=== PATIENT | female | born 2000 | race Asian ===

== ENCOUNTER → 2022-05-14 11:37 | Outpatient (BNVA) | payer OTHER, SELFPAY | PROVIDERS: PCP Internal Medicine; Visit Provider Student in an Organized Health Care Education/Training Program | DX: Z13.89 Encounter for screening for other disorder (principal) ==

== ENCOUNTER 2023-01-16 10:01 | Outpatient (REF) | payer OTHER, SELFPAY | END 2023-01-16 10:02 | disposition home or self-care (01) | LOC: HO.LAB 10:01 | PROVIDERS: PCP Internal Medicine; Visit Provider Student in an Organized Health Care Education/Training Program | DX: Z13.89 Encounter for screening for other disorder (principal) ==

== ENCOUNTER 2023-01-22 14:06 | Outpatient (AMB) | payer OTHER, SELFPAY ==
--- NOTE | 2023-01-22 14:09 | MHC.OFFVIS ---
Intake Vital Signs 01/22/23 14:14 Height 5 ft 2 in Weight 116 lb 13.52 oz BMI 21.4 BP 102/70 Blood Pressure Location Rt brachial Position Sitting Pulse 87 Pulse Source Pulse Oximeter Temp 98.7 F Temp Source Skin Pulse Oximetry (%) 97 Oxygen Delivery Method Room Air Intake Visit Reasons: SLE Intake Note: Patient presents here today for SLE follow up. Waitress Required: No Allergies desogestrel [From Apri] Allergy (Severe, Verified 01/22/23 14:15) Hives ethinyl estradiol [From Apri] Allergy (Severe, Verified 01/22/23 14:15) Hives propylene glycol Allergy (Severe, Verified 01/22/23 14:15) Hives sertraline Allergy (Severe, Verified 01/22/23 14:15) Hallucinations Medication List - Last Reconciled 01/22/23 by Leona Sierra MD amitriptyline 10 mg PO BEDTIME 30 days atovaquone-proguanil 250-100 mg 1 tab PO DAILY azelastine intranasal betamethasone dipropionate 0.05% topical BID PRN clindamycin phosphate 1% topical fexofenadine 180 mg PO DAILY fluticasone propionate 50 mcg/actuation sprays intranasal hydroxychloroquine 200 mg PO DAILY lamotrigine 50 mg PO DAILY levonorgestrel-ethinyl estrad 0.15 mg-30 mcg (91) 1 tab PO DAILY PRN magnesium oxide 400 mg PO BEDTIME 30 days trazodone 100 mg PO DAILY triamcinolone acetonide intranasal HPI HPI Comments History of Present Illness Details 22-year-old female with UCTD returns for follow-up. Patient is on hydroxychloroquine 200 mg daily regularly. She states that she feels at least 30% improvement in the stiffness of her hands and feet. She denies any other symptoms such as hair loss, mouth ulcers, blood in the urine. Initial history: This is a 21-year-old female with a past medical history of anxiety, depression, ADHD, headaches presents for evaluation of inflammatory arthritis. Patient was previously evaluated by Dr. Tran she was found to have a positive LORI, positive dsDNA and positive rheumatoid factor. She has a positive family history of rheumatoid arthritis in her mother and maternal grandmother. Patient stated she was on hydroxychloroquine for about 1 year which did help her overall joint pain symptoms. She also stated that physical therapy prescribed for her back also of her symptoms. She continues to have stiffness of her hands in the morning lasting from 30 minutes to 1 hour. Improved with exercising. Continues to have back pain. She denies any history of Raynaud's, DVT/PE, never attempted . No sicca symptoms. No rashes PFSH Medical History ADHD (attention deficit hyperactivity disorder) Anxiety and depression LORI positive Rheumatoid factor positive Surgical History Hx of wisdom tooth extraction Family History Mother Rheumatoid arthritis Maternal Grandmother HTN (hypertension) Rheumatoid arthritis Social History Household Members: Family Alcohol intake: never Patient Tobacco Use Status: Never used Tobacco Review of Systems Musc Reports back pain, Reports myalgias, Reports arthralgias and Reports stiffness Physical Exam Vital Signs: Last Vital Signs Temp 98.7 F 01/22/23 14:14 Pulse 87 01/22/23 14:14 BP 102/70 01/22/23 14:14 Pulse Ox 97 01/22/23 14:14 Oxygen Delivery Method Room Air 01/22/23 14:14 BMI result Body Mass Index 21.4 Const General: cooperative, healthy appearing, comfortable and no acute distress Nutritional Appearance: thin Orientation/consciousness: patient oriented x3 Limitations: no limitations HEENT Head: Yes normocephalic and Yes atraumatic Mouth: moist mucous membranes Resp Effort & Inspection: normal respiratory effort and able to speak in complete sentences Auscultation: clear to auscultation bilaterally Cardio Other: Little tachycardic likely due to anxiety Rhythm: regular rhythm Heart sounds: S1 normal heart sound present and S2 normal heart sound present GI Inspection: No distended Palpation (GI): Soft to palpation and nontender Skin General skin exam: no rashes or lesions noted Neuro General: patient oriented x3 Extrem Other: He has tender MCPs PIP is and DIPs without any swelling Normal nailfold capillaroscopy Few tender MTPs without any swelling. Diffuse fibromyalgia tender points in her back, chest and thighs Results Reviewed Results Reviewed: Labs in 2020? LORI 1-1280 homogeneous DsDNA positive? RF positive Lieberman/MACHINE MAINTENANCE TECHNICIAN negative? Ant-Ro/Anti-la not done Assessment & Plan Assessment & Plan (1) Undifferentiated connective tissue disease: Comment: dx 2020 (arthralgias, +++ LORI, ++ dsDNA, ++RF) HCQ started 2020 then lost to f/u restarted 04/2022 effective Code(s): M35.9 - Systemic involvement of connective tissue, unspecified Plan: This is a 22-year-old female with UCTD who presents for follow-up.? Patient mentions at least 30% improvement in the stiffness of her hands and feet on hydroxychloroquine 200 mg daily. Continue hydroxychloroquine 200 mg daily. Patient stated that she will do the requested blood work, but she will have to do it in multiple blood draws as she feels she will faint Follow-up in 4 months (2) Fibromyalgia, primary: Code(s): M79.7 - Fibromyalgia Plan: Continue to do light activities. (3) Long-term use of hydroxychloroquine: Code(s): Z79.899 - Other terminal system operator (current) drug therapy Plan: Discussed risk of retinopathy while on hydroxychloroquine. Patient was evaluated by an magician/illusionist this year for hydroxychloroquine screening. Referred patient to Client Account Manager Plan I spent 26 minutes reviewing patient's chart, evaluating patient, placing orders, counseling patient and documenting in the chart Orders: Referrals Ophthalmology Referral Z79.899 - Other terminal system operator (current) drug therapy Coding Level of Care Code Est Pt Level 4 (78395) Diagnoses Undifferentiated connective tissue disease M35.9 Fibromyalgia, primary M79.7 Long-term use of hydroxychloroquine Z79.899
[2023-01-22 14:14] VITALS: BP 102/70; PULSE 87; TEMP 37.1; O2SAT 97; BMI 21.4
== END 2023-01-22 14:29 | disposition home or self-care (01) ==
PROVIDERS: PCP Internal Medicine; Visit Provider Student in an Organized Health Care Education/Training Program
DX: M35.89 Other specified systemic involvement of connective tissue (principal); M79.7 Fibromyalgia; Z79.899 Other long term (current) drug therapy
CPT/HCPCS: 99213

== ENCOUNTER → 2023-01-22 14:06 | Outpatient (BNVA) | payer OTHER, SELFPAY | PROVIDERS: PCP Internal Medicine; Visit Provider Student in an Organized Health Care Education/Training Program ==

== ENCOUNTER 2023-03-02 16:04 | Outpatient (REF) | payer OTHER, SELFPAY ==
[2023-03-02 16:29] LABS: MANUAL DIFF FLAG NO
[2023-03-02 16:54] LABS: Basophils Absolute Auto 0.1 X10*3/uL (0.0-0.2); Basophils Percent Auto 1.1 % (0-2); Eosinophils Absolute Auto 0.3 X10*3/uL (0.0-0.4); Eosinophils Percent Auto 3.4 % (0-4); Hematocrit 42.6 % (37.0-47.0); Hemoglobin 14.3 g/dl (12.0-16.0); Imm Gran Abs Auto 0.02 X10*3/uL (0.00-0.03); Imm Gran Pct Auto 0.3 % (0.0-0.4); Lymphocytes Absolute Auto 2.7 X10*3/uL (1.2-4.9); Lymphocytes Percent Auto 35.7 % (20-40); Mean Corpuscular HGB Conc 33.6 g/dl (31.0-35.0); Mean Corpuscular Hemoglobin 30.4 pg (27.0-33.0); Mean Corpuscular Volume 90.6 fL (80.0-98.0); Mean Platelet Volume 9.2 fL (9.4-12.3); Monocytes Absolute Auto 0.7 X10*3/uL (0.1-1.2); Monocytes Percent Auto 9.5 % (2-11); Neutrophils Absolute Auto 3.8 x10*3/uL (2.0-8.3); Platelet Count 335 X10*3/uL (160-400); Red Cell Distribution Width 11.5 % (11.0-16.0); White Blood Count 7.6 X10*3/uL (4.8-10.8)
[2023-03-03 04:36] LABS: HBS Num1 > 1000.00 mIU/mL (0-7.99); HBc Num1 0.13 S/CO (0.00-0.79); HBsAGNum1 0.37 S/CO (0.00-0.99); Hepatitis A Antibody IgM 0.38 Index (0-0.79); Hepatitis B Core Antibody Nonreactive (Nonreactive); Hepatitis B Surface Antigen Negative (Negative); ~Hepatitis A Antibody IgM Nonreactive (Nonreactive); ~Hepatitis B Surface Antibody REACTIVE (Nonreactive); ~Hepatitis C Antibody Nonreactive (Nonreactive)
[2023-03-04 18:34] LABS: SM/Ribonucleoprotein Ab <1.0 NEG AI (<1.0 NEG); Smith Protein <1.0 NEG AI (<1.0 NEG)
[2023-03-04 18:44] LABS: Antibody to SS-A Antigen <1.0 NEG AI (<1.0 NEG); Antibody to SS-B Antigen <1.0 NEG AI (<1.0 NEG)
== END 2023-03-02 16:05 | disposition home or self-care (01) ==
LOC: HO.LAB 16:04
PROVIDERS: Visit Provider Student in an Organized Health Care Education/Training Program
DX: Z11.59 Encounter for screening for other viral diseases (principal); M32.9 Systemic lupus erythematosus, unspecified; Z72.89 Other problems related to lifestyle
CPT/HCPCS: 36415; 85025; 86235; 86704; 86706; 86709; 86803; 87340

== ENCOUNTER 2024-04-03 15:28 | Outpatient (AMB) | payer OTHER, SELFPAY ==
--- NOTE | 2024-04-03 15:33 | A.OFFVIS_ITS ---
Vital Signs 3 04/03/24 15:34 04/03/24 15:50 Height 5 ft 2 in 5 ft 2 in Weight 124 lb 1.924 oz BMI 22.7 BP 122/72 Blood Pressure Location Lt brachial Position Sitting Temp 98.0 F Temp Source Temporal Artery Scan Intake Visit Reasons: SLE/cm Allergies desogestrel [From Apri] Allergy (Severe, Verified 01/22/23 14:15) Hives ethinyl estradiol [From Apri] Allergy (Severe, Verified 01/22/23 14:15) Hives propylene glycol Allergy (Severe, Verified 01/22/23 14:15) Hives sertraline Allergy (Severe, Verified 01/22/23 14:15) Hallucinations Medication List - Last Reconciled 04/03/24 by Leona Sierra MD amitriptyline 10 mg PO BEDTIME 30 days azelastine intranasal betamethasone dipropionate 0.05% topical BID PRN clindamycin phosphate 1% topical dexamethasone 0.75 mg PO DAILY fexofenadine 180 mg PO DAILY hydroxychloroquine 200 mg PO DAILY lamotrigine 50 mg PO DAILY levonorgestrel-ethinyl estrad 0.15 mg-30 mcg (91) 1 tab PO DAILY PRN magnesium oxide 400 mg PO BEDTIME 30 days trazodone 100 mg PO DAILY HPI Comments Details: 23-year-old female with UCTD returns for follow-up. Patient is on hydroxychloroquine 200 mg daily regularly. She was last seen 12/2022. She has missed multiple appointments, she states that is in December she started having an itchy rash on left side, near the belt area then she had similar rashes on the right side then she started having rashes on her legs. She was evaluated by chain forming machine operator and started on betamethasone cream without improvement then started on dexamethasone tablets, the effective dose was 5 tablets of 0.75 mg, then tapered down. She is currently on 0.7 mg daily. And rashes are coming back especially on her legs. She was also evaluated by senior biostatistician. Per patient the senior biostatistician I believe her symptoms were allergic in etiology. Initial history: This is a 21-year-old female with a past medical history of anxiety, depression, ADHD, headaches presents for evaluation of inflammatory arthritis. Patient was previously evaluated by Dr. Tran she was found to have a positive LORI, positive dsDNA and positive rheumatoid factor. She has a positive family history of rheumatoid arthritis in her mother and maternal grandmother. Patient stated she was on hydroxychloroquine for about 1 year which did help her overall joint pain symptoms. She also stated that physical therapy prescribed for her back also of her symptoms. She continues to have stiffness of her hands in the morning lasting from 30 minutes to 1 hour. Improved with exercising. Continues to have back pain. She denies any history of Raynaud's, DVT/PE, never attempted . No sicca symptoms. No rashes PFSH Medical History ADHD (attention deficit hyperactivity disorder) Anxiety and depression LORI positive Rheumatoid factor positive Surgical History Hx of wisdom tooth extraction Family History Mother Rheumatoid arthritis Maternal Grandmother HTN (hypertension) Rheumatoid arthritis Social History Household Members: Family Alcohol intake: never Patient Tobacco Use Status: Never used Tobacco Female Reproductive History Menstrual Total pregnancies: 0 Review of Systems Musc Reports myalgias and Reports arthralgias Skin/Breast Reports pruritus, Reports lesions and Reports rash Physical Exam Const General: cooperative, healthy appearing, comfortable and no acute distress Nutritional Appearance: thin Orientation/consciousness: patient oriented x3 Limitations: no limitations HEENT Head: Yes normocephalic and Yes atraumatic Mouth: moist mucous membranes Resp Effort & Inspection: normal respiratory effort and able to speak in complete sentences Auscultation: clear to auscultation bilaterally Cardio Other: Little tachycardic likely due to anxiety Rhythm: regular rhythm Heart sounds: S1 normal heart sound present and S2 normal heart sound present GI Inspection: No distended Palpation (GI): Soft to palpation and nontender Skin Other: Hyperpigmented likely post eczematous rashes on her waist bilaterally Raised hyperpigmented rash on her right marks Neuro General: patient oriented x3 Extrem Other: No active synovitis today Results Reviewed Results Reviewed: Labs in 2020? LORI 1-1280 homogeneous DsDNA positive? RF positive Lieberman/OVERLAY OPERATOR negative? Ant-Ro/Anti-la not done Assessment & Plan Assessment & Plan (1) Undifferentiated connective tissue disease: Comment: dx 2020 (arthralgias, +++ LORI, ++ dsDNA, ++RF) HCQ started 2020 then lost to f/u restarted 04/2022 effective Code(s): M35.9 - Systemic involvement of connective tissue, unspecified Category: Medical Plan: This is a 23-year-old female with UCTD who presents for follow-up.? She was last seen in clinic 12/2022. She has missed multiple appointments. Did not do any of the requested blood work over the last year. She has been having itchy skin rashes over the last 3 months. Was evaluated by a chain forming machine operator and senior biostatistician. Per patient no diagnosis was found. Symptoms improve with 5 mg of dexamethasone, recur when dexamethasone is tapered I will order comprehensive serology to screen for underlying autoimmune rheumatic disease check labs for urticarial vasculitis Patient will be going back to her chain forming machine operator tomorrow. A skin biopsy and sending it for histopathology and immunofluorescence would be helpful Continue hydroxychloroquine 20 mg daily Follow-up in 4 weeks Plan I spent 26 minutes reviewing patient's chart, evaluating patient, placing orders, counseling patient and documenting in the chart Orders: Orders 2 Anti Extractable Nuclear Ag Today M32.9 - Systemic lupus erythematosus, unspecified Complement C4 Today M32.9 - Systemic lupus erythematosus, unspecified DNA Double Stranded-Crithidia Today M32.9 - Systemic lupus erythematosus, unspecified Erythrocyte Sedimentation Rate Today M32.9 - Systemic lupus erythematosus, unspecified Protein Creatinine Ratio, Ur Today M32.9 - Systemic lupus erythematosus, unspecified Sjogren's Antibodies Today M32.9 - Systemic lupus erythematosus, unspecified UA w Microscopic Today M32.9 - Systemic lupus erythematosus, unspecified T Spot TB Today Z11.7 - Encounter for testing for latent tuberculosis infection C1Q Complement Component Today L95.8 - Other vasculitis limited to the skin C1q Antibody IgG Today L95.8 - Other vasculitis limited to the skin Beta-2 Glycoprotein Antibody Today D68.61 - Antiphospholipid syndrome Endomysial IgA rflx Titer Today K90.0 - Celiac disease Rheumatoid Factor Today M19.90 - Unspecified osteoarthritis, unspecified site Cyclic Citrullinated Peptide Today M19.90 - Unspecified osteoarthritis, unspecified site Anti DNA DS Antibody Today M32.9 - Systemic lupus erythematosus, unspecified Complement C3 Today M32.9 - Systemic lupus erythematosus, unspecified C Reactive Protein Today M32.9 - Systemic lupus erythematosus, unspecified Complete Blood Count Auto Diff Today M32.9 - Systemic lupus erythematosus, unspecified Comprehensive Met. Panel Today M32.9 - Systemic lupus erythematosus, unspecified Hepatitis A,B,C Profile Today Z11.59 - Encounter for screening for other viral diseases Immunofixation Pnl, Serum Today M32.9 - Systemic lupus erythematosus, unspecified Angiotensin Converting Enzyme Today D86.9 - Sarcoidosis, unspecified ANCA Vasculitides Today I77.6 - Arteritis, unspecified Lupus Anticoagulant Panel Today D68.61 - Antiphospholipid syndrome Cardiolipin Antibodies Today D68.61 - Antiphospholipid syndrome Immunoglobulin A Today K90.0 - Celiac disease Transglutaminase Ab IgG Today K90.0 - Celiac disease Coding Level of Care Code Est Pt Level 4 (09637) Diagnoses Undifferentiated connective tissue disease M35.9
[2024-04-03 15:50] VITALS: BP 122/72; TEMP 36.7; BMI 22.7
== END 2024-04-03 16:10 | disposition home or self-care (01) ==
PROVIDERS: PCP Internal Medicine; Visit Provider Student in an Organized Health Care Education/Training Program
DX: M35.89 Other specified systemic involvement of connective tissue (principal)
CPT/HCPCS: 99214

== ENCOUNTER 2024-05-04 14:44 | Outpatient (AMB) | payer OTHER, SELFPAY ==
[2024-05-04 14:45] VITALS: BP 118/84; PULSE 57; BMI 24.1
--- NOTE | 2024-05-04 14:45 | MHC.OFFVIS ---
Vital Signs 05/04/24 14:45 Height 5 ft 2 in Weight 131 lb 13.383 oz BMI 24.1 BP 118/84 Blood Pressure Location Rt brachial Position Sitting Pulse 57 Pulse Source Pulse Oximeter Intake Visit Reasons: sle Intake Note: Patient last seen by Doctor Leona Sierra on 04/03/24. Presents today for SLE follow up and test results. Bacteriology Teacher Required: No Accompanied by: Self / Same As Patient Allergies desogestrel [From Apri] Allergy (Severe, Verified 05/04/24 14:50) Hives ethinyl estradiol [From Apri] Allergy (Severe, Verified 05/04/24 14:50) Hives propylene glycol Allergy (Severe, Verified 05/04/24 14:50) Hives sertraline Allergy (Severe, Verified 05/04/24 14:50) Hallucinations Medication List - Last Reconciled 05/04/24 by Leona Sierra MD amitriptyline 10 mg PO BEDTIME 30 days azelastine intranasal betamethasone dipropionate 0.05% topical BID PRN clindamycin phosphate 1% topical dexamethasone 0.75 mg PO DAILY fexofenadine 180 mg PO DAILY hydroxychloroquine 200 mg PO DAILY lamotrigine 50 mg PO DAILY levonorgestrel-ethinyl estrad 0.15 mg-30 mcg (91) 1 tab PO DAILY PRN magnesium oxide 400 mg PO BEDTIME 30 days trazodone 100 mg PO DAILY HPI Comments Details: 23-year-old female with UCTD returns for follow-up. She continues to have intermittent itchy rashes on her legs. She states that she was just restarted on a dexamethasone taper. She is now on 0.75 mg daily. She remains on hydroxychloroquine 200 mg daily. Initial history: This is a 21-year-old female with a past medical history of anxiety, depression, ADHD, headaches presents for evaluation of inflammatory arthritis. Patient was previously evaluated by Dr. Tran she was found to have a positive LORI, positive dsDNA and positive rheumatoid factor. She has a positive family history of rheumatoid arthritis in her mother and maternal grandmother. Patient stated she was on hydroxychloroquine for about 1 year which did help her overall joint pain symptoms. She also stated that physical therapy prescribed for her back also of her symptoms. She continues to have stiffness of her hands in the morning lasting from 30 minutes to 1 hour. Improved with exercising. Continues to have back pain. She denies any history of Raynaud's, DVT/PE, never attempted . No sicca symptoms. No rashes PFSH Medical History ADHD (attention deficit hyperactivity disorder) Anxiety and depression LORI positive Rheumatoid factor positive Surgical History Hx of wisdom tooth extraction Family History Mother Rheumatoid arthritis Maternal Grandmother HTN (hypertension) Rheumatoid arthritis Social History Household Members: Family Alcohol intake: never Patient Tobacco Use Status: Never used Tobacco Review of Systems Musc Reports myalgias and Reports arthralgias Skin/Breast Reports pruritus, Reports lesions and Reports rash Physical Exam Vital Signs: Last Vital Signs Pulse 57 05/04/24 14:45 BP 118/84 05/04/24 14:45 BMI result Body Mass Index 24.1 Const General: cooperative, healthy appearing, comfortable and no acute distress Nutritional Appearance: thin Orientation/consciousness: patient oriented x3 Limitations: no limitations HEENT Head: Yes normocephalic and Yes atraumatic Mouth: moist mucous membranes Resp Effort & Inspection: normal respiratory effort and able to speak in complete sentences Auscultation: clear to auscultation bilaterally Cardio Rhythm: regular rhythm Heart sounds: S1 normal heart sound present and S2 normal heart sound present GI Inspection: No distended Palpation (GI): Soft to palpation and nontender Skin Other: raised hyper pigmented rashes on her legs bilaterally Neuro General: patient oriented x3 Extrem Other: No active synovitis today Multiple fibromyalgia tender points Assessment & Plan Assessment & Plan (1) Undifferentiated connective tissue disease: Comment: dx 2020 (arthralgias, +++ LORI, ++ dsDNA, ++RF) HCQ started 2020 then lost to f/u restarted 04/2022 effective Code(s): M35.9 - Systemic involvement of connective tissue, unspecified Category: Medical Plan: This is a 23-year-old female with UCTD who presents for follow-up.? She remains on hydroxychloroquine 200 mg daily. She continues to have itchy rashes on her legs, she was restarted on a dexamethasone taper. She is currently on 0.75 mg daily Comprehensive serologies ordered last visit were negative. It seems less likely that her current rashes are due to an underlying autoimmune rheumatic disease Continue with hydroxychloroquine 200 mg daily Follow-up in 6 months (2) Long-term use of hydroxychloroquine: Comment: Eye exam 02/2023 okay Code(s): Z79.899 - Other senior care (current) drug therapy Category: Medical Plan: Follow-up regularly with Ophthalmology (3) Fibromyalgia, primary: Code(s): M79.7 - Fibromyalgia Category: Medical Plan: Discussed management of fibromyalgia with patient. Is a noninflammatory, non-autoimmune central afferent processing disorder leading to a diffuse pain syndrome. Patient follows up regularly with a psychiatrist and a psychotherapist. Try to follow sleep hygiene practices. Consider a referral for a sleep study by PCP to rule out FRITZ. Patient exercises regularly at the gym, every other day. Advised patient to continue with exercises Plan I spent 26 minutes reviewing patient's chart, evaluating patient, counseling patient and documenting in the chart Coding Level of Care Code Est Pt Level 4 (77718) Diagnoses Undifferentiated connective tissue disease M35.9 Long-term use of hydroxychloroquine Z79.899 Fibromyalgia, primary M79.7
== END 2024-05-04 15:25 | disposition home or self-care (01) ==
PROVIDERS: PCP Internal Medicine; Visit Provider Student in an Organized Health Care Education/Training Program
DX: M35.89 Other specified systemic involvement of connective tissue (principal); Z79.899 Other long term (current) drug therapy; M79.7 Fibromyalgia
CPT/HCPCS: 99213

== ENCOUNTER 2024-11-15 15:07 | Outpatient (AMB) | payer OTHER, SELFPAY ==
--- NOTE | 2024-11-15 15:15 | A.OFFVIS_ITS ---
Vital Signs 11/15/24 15:16 Height 5 ft 2 in Weight 126 lb 15.78 oz BMI 23.2 BP 122/72 Blood Pressure Location Lt brachial Position Sitting Pulse 86 Pulse Source Pulse Oximeter Pulse Oximetry (%) 98 Oxygen Delivery Method Room Air Intake Visit Reasons: UCTD Intake Note: Patient presents for follow up on UCTD. Patient requests for hydroxychloroquine refill today. Allergies desogestrel (From Apri) Allergy (Severe, Verified 11/15/24 15:18) Hives ethinyl estradiol (From Apri) Allergy (Severe, Verified 11/15/24 15:18) Hives propylene glycol Allergy (Severe, Verified 11/15/24 15:18) Hives sertraline Allergy (Severe, Verified 11/15/24 15:18) Hallucinations HPI Comments Details: Patient is a 24-year-old female with anxiety and depression, ADHD, episodic paroxysmal hemicrania, fibromyalgia and undifferentiated connective tissue disease here today for follow up Interval History: Patient last seen 05/04/24 with me. - Complained of intermittent itchy rash on legs - On dexamethasone taper Today - Completed dexamethasone taper - Rash improved - Currently with wrist sprain after competition - AM stiffness to PIPs and knees about 30 mins - Worsening fatigue Rheumatologic History: dx 2020 (arthralgias, +++ LORI, ++ dsDNA, ++RF) HCQ started 2020 then lost to f/u restarted 04/2022 effective Initial history: This is a 21-year-old female with a past medical history of anxiety, depression, ADHD, headaches presents for evaluation of inflammatory arthritis. Patient was previously evaluated by Dr. Tran she was found to have a positive LORI, positive dsDNA and positive rheumatoid factor. She has a positive family history of rheumatoid arthritis in her mother and maternal grandmother. Patient stated she was on hydroxychloroquine for about 1 year which did help her overall joint pain symptoms. She also stated that physical therapy prescribed for her back also of her symptoms. She continues to have stiffness of her hands in the morning lasting from 30 minutes to 1 hour. Improved with exercising. C ontinues to have back pain. She denies any history of Raynaud's, DVT/PE, never attempted . No sicca symptoms. No rashes Current Rheumatology Medication(s): Hydroxychloroquine 200mg bid [facility] Medical History ADHD (attention deficit hyperactivity disorder) Anxiety and depression LORI positive Rheumatoid factor positive Surgical History Hx of wisdom tooth extraction Family History Mother Rheumatoid arthritis Maternal Grandmother HTN (hypertension) Rheumatoid arthritis Social History Household Members: Family Alcohol intake: never Patient Tobacco Use Status: Never used Tobacco Review of Systems Const Details: Review of Systems Constitutional: Denies fever, chills, weight loss ENT: Denies vision changes, eye pain or eye redness, dental caries, dry mouth GI: Denies nausea, vomiting, diarrhea, abdominal pain, change in BM Pulm: Denies SOB, SOMMERS, hemoptysis, wheezing Cards: Denies chest pain, palpitations Skin: Denies Raynaud's, rash, nail changes, photosensitivity, CHAR FILTER OPERATOR HELPER: Denies headaches, weakness, paresthesias, recurrent falls MSK: as per HPI All other systems reviewed and are unremarkable except noted above Physical Exam Exam Exam: Vital signs reviewed Physical Examination CONSTITUITIONAL Patient alert and cooperative. Well appearing and in no apparent painful distress MSK Hands * Right Hand: Able to make a fist. No swelling or tenderness to palpation of these joints. No deformities noted. * Left Hand: Able to make a fist. No swelling or tenderness to palpation of these joints. No deformities noted. Wrists * Right Wrist: In splint. Not examined * Left Wrist: Full ROM. 70 degrees of wrist flexion, 80 degrees of wrist extension. No swelling or TTP Elbows * Right Elbow: Full ROM. No swelling or TTP. No TTP of the medial and lateral epicondyles * Left Elbow: Full ROM. No swelling or TTP. No TTP of the medial and lateral epicondyles Shoulders * Right shoulder: Full ROM. No swelling noted. No TTP of the AC joint, subacromial bursa or posterior shoulder * Left shoulder: Full ROM. No swelling noted. No TTP of the AC joint, subacromial bursa or posterior shoulder Knees * Right knee: Full ROM. No swelling noted. No TTP of the knee joint lie. TTP of the pes anserine bursa * Left knee: Full ROM. No swelling noted. TTP of the knee joint lie but no TTP of the pes anserine bursa. Ankles * Right ankle: Good ankle dorsiflexion and plantar flexion. No swelling. No TTP of the ankle joint * Left ankle: Good ankle dorsiflexion and plantar flexion. No swelling. No TTP of the ankle joint * Stiffness with ankle ROM Feet * Right foot: Negative squeeze test * Left foot: Negative squeeze test Tender points? * No tenderness to palpation of the bilateral trapezius, supraspinatus, anterior costochondral junctions, bilateral suboccipital muscle insertions SKIN No rashes Vital Signs: BMI result Body Mass Index 23.2 Results Reviewed Results Reviewed: 05/19/24 Lab farn[facility] WBC 13.7 H Hb 14.5 Plt 306 BUN 14 Cr 0.56 L eGFR 131 ESR 7 CRP 2 Assessment & Plan Assessment & Plan (1) Undifferentiated connective tissue disease: Comment: dx 2020 (arthralgias, +++ LORI, ++ dsDNA, ++RF) HCQ started 2020 then lost to f/u restarted 04/2022 effective Code(s): M35.9 - Systemic involvement of connective tissue, unspecified Category: Medical Plan: #UCTD Patient is a 20-year-old female with undifferentiated connective disease here today for follow up. Her main complaint is fatigue. I discussed with the patient that fatigue is very hard symptom to treat especially in the realm of autoimmune connective tissue diseases. She did follow up with her generator repairer and had a slightly low TSH but her T4 was normal and her TPO antibodies were also normal. I think it is reasonable for us to continue the current treatment and to monitor. No labs today we will check again 6 months Plan - Hydroxychloroquine 200mg bid - RTC 6 months - Labs before visit: CBC, CMP, ESR, CRP, C3, C4, dsDNA, UA, UPC (2) Long-term use of hydroxychloroquine: Comment: Eye exam 2022/ Code(s): Z79.899 - Other terminal operations manager (current) drug therapy Category: Medical Plan: #Long-term Use of Hydroxychloroquine Discussed with patient the risks and benefits of hydroxychloroquine in managing the rheumatic condition Benefits include: - Reduced pain, reduce mortality, maintenance of remission and reduction of flares Risks include: - GI upset, skin hyperpigmentation, retinal toxicity (especially after more than 5 years of use), myopathy Advised yearly ophthalmology visits Plan I spent 20 minutes reviewing the record and labs, taking a history, examining the patient, discussing the treatment plan, ordering diagnostic work up and documenting in the medical record Orders: Orders Complement C3 6 Months M3. - Systemic involvement of connective tissue, unspecified Comprehensive Met. Panel 6 Months . - Systemic involvement of connective tissue, unspecified C Reactive Protein 6 Months M35.9 - Systemic involvement of connective tissue, unspecified Erythrocyte Sedimentation Rate 6 Months M35.9 - Systemic involvement of connective tissue, unspecified Protein Creatinine Ratio, Ur 6 Months M35. - Systemic involvement of connective tissue, unspecified UA w Microscopic 6 Months M3. - Systemic involvement of connective tissue, unspecified Anti DNA DS Antibody 6 Months M35.9 - Systemic involvement of connective tissue, unspecified Complement C4 6 Months M35.9 - Systemic involvement of connective tissue, unspecified Complete Blood Count Auto Diff 6 Months . - Systemic involvement of connective tissue, unspecified Vitamin D 25-OH Total 6 Months M35.9 - Systemic involvement of connective tissue, unspecified Coding Level of Care Code Est Pt Level 3 (29690) Complex EM visit Add On G2211 Diagnoses Undifferentiated connective tissue disease . Long-term use of hydroxychloroquine Z79.899
[2024-11-15 15:16] VITALS: BP 122/72; PULSE 86; O2SAT 98; BMI 23.2
--- OUTSIDE RECORDS SUMMARY | 2024-11-15 15:37 | XMS_ITS ---
Author Name [facility] Organization Unknown Encounters Encounter Type Encounter Reason Primary Diagnosis Location Date Ambulatory [facility] [place] 11/13/2024
--- OUTSIDE RECORDS SUMMARY | 2024-11-15 15:37 | XMS_ITS | Clinical Summary ---
Author Organization [facility] Transfer Address [address] [place] [address] Care Team Providers Care Dog Obedience Instructor Name Role Phone Lucrecia Herron MD Primary Care Provider [phone] Allergies Active Allergy Reactions Criticality Noted Date Comments Desogestrel-Ethinyl Estradiol Itching Medium 04/05/2019 Other Reaction(s): Hives/Urticaria Other Itching Medium 09/18/2020 Hydroperoxides Pollen Extracts 11/09/2012 Seasonal Allergies Propylene Glycol Itching Medium 09/18/2020 Sertraline 07/11/2020 Causes efrain Medications levonorgestrel-et hinyl estradiol (SEASONALE) 0.15 mg-30 mcg (91) per tablet Take 1 Tablet by mouth daily. 4 Active amitriptyline (ELAVIL) 10 mg tablet 3 Active hydroxychloroquin e (PLAQUENIL) 200 mg tablet Take 1 tablet by mouth daily. 1 Active azelastine (ASTELIN) 137 mcg (0.1 %) nasal spray 2 Sprays by Each Nare route 2 times daily. 1 Active lamoTRIgine (LaMICtal) 25 mg tablet Take 25 mg by mouth daily. Active traZODone (DESYREL) 50 mg tablet Take 50 mg by mouth at bedtime. Active betamethasone dipropionate (DIPROSONE) 0.05 % cream PLEASE SEE ATTACHED FOR DETAILED DIRECTIONS 5 Active famotidine (Pepcid) 20 mg tablet Take 1 tablet (20 mg total) by mouth 2 (two) times a day. 180 each 5 Active EPINEPHrine (EPIPEN) 0.3 mg/0.3 mL injection Inject 0.3 mL (0.3 mg total) into the thigh if needed for anaphylaxis. 1 each 1 5 Active fexofenadine (GERMANIA) 180 mg tablet Take 1 tablet (180 mg total) by mouth 1 (one) time each day. Active Active Problems Problem Noted Date Diagnosed Date Fibromyalgia 05/04/2024 Inflammatory arthritis 04/22/2021 Overview (04/11/2024): Pos RF, LORI, anti-dsDNA. Negative SINCERE,CCP Ab Hydroxychloroquine started, September 2020 Polyarthralgia 12/18/2020 Overview (04/11/2024): Hydroxychloroquine started, September 2020 LORI positive 10/08/2020 Overview (04/11/2024): 2020: Anti-DNA, RF also positive, polyarthralgias Other idiopathic scoliosis, thoracic region 09/24 Rheumatoid factor positive 10/08/2020 Overview (04/11/2024): 2020: Rheumatoid factor titer was 56, positive LORI and antidouble-stranded DNA. Negative SINCERE and CCP antibody ADHD 08/19/2020 Anxiety and depression 04/11/2019 Resolved Problems Problem Noted Date Diagnosed Date Resolved Date Astigmatism 05/17/2008 06/08/2024 Immunizations Name Administration Dates Next Due DTaP (Infanrix) 6wks to less than 7yo ,01/09/2002,01/12/2001,11/08,2000 [id number] (Pentacel) 2mo to less than 5yo 10/06/2001,01/12/2001,2000,09/06 HPV 9-valent (Gardisil) 9yo to less than 46yo 01/07/2017,07/03/2016,04/30/2016 Hepatitis A Adult (Havrix; V aqta) 19yo and older 10/21/2022 Hepatitis B Pediatric (Enger ix B; Recombivax HB) to less than 20 yo 04/12/2001,2000,2000 IPV Inactivated polio (Ipol) 6wks and older 12/31/2004,04/12/2001,2000,09/06 Influenza trivalent, 0.5mL, preservative free (Fluarix; FluLaval; Fluzone) ages 6mo and older (Afluria) 3 years and older 01/31/2021,02/08/2020,03/16/2019,01/19,01/07/2017,04/14/2016,06/01/2008 Influenza, live, intranasal, trivalent (FluMist) 2yo to less than 50yo 04/03/2015,01/12/2014,03/25/2012,01/19,02/21/2010,02/01/2009 Estonian Encephalitis 10/21/2022 MMR, measles mumps and rubel la Live (Priorix; M-M-R II) 12mo and older 12/31/2004,10/06/2001 Meningococcal MCV4P 06/17/2017,02/26/2015 PPD Test 05/15/2003,08/16/2002 Onyvax SARS-CoV-2 COVID-19, mRNA, LNP-S, preservative free 08/16/2020 Pneumococcal Conjugate Vacci ne, 7 Valent 01/12/2001,2000,2000 Tdap Tetanus diptheria acell ular pertussis (Boostrix; Adacel) 7yo and older 10/21/2022,06/10/2012 Typhoid VICPS (Typhim Vi) 2y o and older 10/21/2022 Varicella live (Varivax) 12m o and older 06/01/2008,01/09/2002 Surgical History Surgery Date Site/Laterality Comments WISDOM TOOTH EXTRACTION Medical History Medical History Date Comments Right ankle sprain 08/04/2017 : Seen 8 by ortho - conservative rx recommended Adhd 08/19/2020 LORI positive 10/08/2020 Inflammatory arthritis 04/22/2021 Pos RF, A NA, anti-dsDNA. Negative SINCERE,CCP Ab Hydroxychloroquine started, September 2020 Rheumatoid factor positive 10/08/20202020: Rheumatoid factor titer was 56, positive LORI and antidouble-stranded DNA. Negative SINCERE and CCP antibody Anxiety and depression 04/11/2019 Fibromyalgia 05/04/2024 Family History Medical History Relation Name Comments Other: alive and well Father Glaucoma Maternal Grandfather Hypertension Maternal Grandmother ?RA Other: rheumatoid arthritis Mother ?ovarian cysts? Other: Crohn's Disease (??) Paternal Grandfather Relation Name Status Comments Father Alive Maternal Grandfather Alive Maternal Grandmother Mother Alive Paternal Grandfather Paternal Grandmother Alive Social History Tobacco Use Types Packs/Day Years Used Date Smoking Tobacco: Never Smokeless Tobacco: Never Tobacco Cessation:Counseling Given: Not Answered Alcohol Use Standard Drinks/Week Comments No 0 (1 standard drink = 0.6 oz pur e alcohol) Housing Instability Answer Date Recorde d Are you worried that in the next 2 months you may not have stable housing? No 05/11/2024 Food Access & Nutrition Answer Date Rec orded Do you have access to a vari ety of food including fruits and vegetables? Yes 05/11/2024 Access to Healthcare Answer Date Record ed Within the last 3 months, ho w many times did you visit the emergency department for your medical care? 0 05/11/2024 Health Literacy Answer Date Recorded How often do you need to hav e someone help you when you read instructions, pamphlets, or other written material from your doctor or pharmacy? Never 05/11/2024 Caregiver: How often do you need to have someone help you when you read instructions, pamphlets, or other written material from your doctor or pharmacy? Not on file 05/11/2024 Financial Risk Answer Date Recorded How hard is it for you to pa y for the very basics like food, housing, medical care, and air conditioning / heating? Not very hard 05/11/2024 Transportation Answer Date Recorded Has the lack of transportati on kept you from meetings, work, or from getting things needed for daily living? No Has the lack of transportati on kept you from medical appointments or from getting medications? No 05/11/2024 Social Isolation Answer Date Recorded How often do you feel lonely or isolated from those around you? Sometimes 05/11/2024 Food Risk Answer Date Recorded Within the past 12 months we worried whether our food would run out before we got money to buy more. Never true 05/11/2024 Within the past 12 months th e food we bought just didn't last and we didn't have money to get more. Never true 05/11/2024 Dependent Care Answer Date Recorded Do you need help finding or paying for care for your loved ones. For example, children's tutor nursery or elderly care for an older adult? No 05/11/2024 Education Answer Date Recorded Do you think completing more education or training, like finishing a GED, going to college, or learning a trade, would be helpful for you? No 05/11/2024 Employment and Income Answer Date Recor ded During the last four weeks, have you been actively looking for work? Yes 05/11/2024 Living Situation Answer Date Recorded What is your living situation? 0 05/11/2024 Comments No Sex and Gender Information Value Date Recorded Sex Assigned at Not on file Legal Sex Female 11:31 AM EDT Gender Identity Not on file Sexual Orientation Not on file Obstetrics History Last Filed Vital Signs Vital Sign Reading Time Taken Comments Blood Pressure 118/68 06/09/2024 10:04 AM EST Pulse 111 06/09/2024 10:04 AM EST Temperature 36.3 C (97.4 F) 06/09/2024 10:04 AM EST Respiratory Rate 14 06/09/2024 10:0 4 AM EST Oxygen Saturation 96% 06/09/2024 10: 04 AM EST Inhaled Oxygen Concentration - - Weight 58.9 kg (129 lb 12.8 oz) 025 10:04 AM EST Height 157.5 cm (5' 2 ) 06/09/2024 10:0 4 AM EST Body Mass Index 23.74 06/09/2024 10:04 AM EST Plan of Treatment Upcoming Encounters Date Type Department Care Team (Late st Contact Info) Description 11/16/2024 3:00 PM EDT Office Visit Adult Medicine [facility] [address] [place] [address] Lucrecia Herron MD [address] [place] [address] Health Maintenance Due Date Last Done Comments HIV Screening 11/17/2019 Hepatitis C Screening 11/17/2019 Cervical Cancer Screening: Pap Smear 2021 Gonorrhea/Chlamydia Screening 07/09/2021 07/09/2020 COVID-19 Vaccine ( season) 2023 04/05/2023, 03/17/2022, 05/02/2021, Additional history exists Influenza Vaccine (#1) 2024 , 02/08/2020, 03/16/2019, Additional history exists Social Influencers of Health Screening 05/11/2025 05/11/2024 DTaP,Tdap,and Td Vaccines (8 - Td or Tdap) 10/21/2032 10/21/2022, 06/10/2012, 12/31/2004, Additional history exists Pneumococcal Vaccine: Pediatrics (0 to 5 Years) and At-Risk Patients (6 to 49 Years) Aged Out 01/12/2001, 2000, 2000 No longer eligible based on patient's age to complete this topic Hepatitis B Vaccines Completed 04/12/2001, 2000, 2000 HIB Vaccines Completed 10/06/2001, 12/25, 2000, Additional history exists IPV Vaccines Completed 12/31/2004, 09/24, 04/12/2001, Additional history exists MMR Vaccines Completed 12/31/2004, 10/06/2001 Varicella Vaccines Completed 06/01/2008, 01/09/2002 HPV Vaccines Completed 01/07/2017, 06/24, 04/30/2016 Meningococcal ACWY Vaccine Completed 06/17/2017, Hepatitis A Vaccines Aged Out 10/21/2022 No long er eligible based on patient's age to complete this topic Depression Screening Completed 05/11/2024 Meningococcal B Vaccine Aged Out No l onger eligible based on patient's age to complete this topic RSV Immunization Patients Under 20 months Aged Out No longer eligible based on patient's age to complete this topic Procedures Procedure Name Priority Date/Time Associated Diagnosis Comments HM GONORRHEA/CHLAMYDIA SCRREENING Routine 07/09/2020 from Last 3 Months or Most Recently Relevant to Health Maintenance Results * Gonorrhea/Chlamydia Screening (07/09/2020) HM Gonorrhea/Chla mydia Screening abstracted Historical Provider MD HEALTH MAINTENANCE Final Result from Last 3 Months or Most Recently Relevant to Health Maintenance Insurance [facility] [employer] Care Teams Dog Obedience Instructor Relationship Specialty Start Date End Date Lucrecia Herron MD [address] [place] [address] PCP - General Internal Medicine 07/29/20
== END 2024-11-15 15:51 | disposition home or self-care (01) ==
LOC: HO.RHE 15:08
PROVIDERS: PCP Internal Medicine; Visit Provider Student in an Organized Health Care Education/Training Program
DX: M35.89 Other specified systemic involvement of connective tissue (principal); Z79.899 Other long term (current) drug therapy
CPT/HCPCS: 99213

== ENCOUNTER → 2024-11-15 15:07 | Outpatient (BNVA) | payer OTHER, SELFPAY | PROVIDERS: PCP Internal Medicine; Visit Provider Student in an Organized Health Care Education/Training Program | DX: M35.9 Systemic involvement of connective tissue, unspecified (principal); Z79.899 Other long term (current) drug therapy | CPT/HCPCS: 99212 ==